=== PATIENT | female | born 1950 | race Caucasian/White ===

== ENCOUNTER → 2023-07-15 13:05 | Outpatient (CLI) | payer MEDICARE, SELFPAY ==
--- NOTE | ~2023-07-15 | XR_ITS ---
EXAMINATION: XR abdomen/kub 1V DATE: 07/15/2023 13:27 INDICATION: Obstruction of left ureteropelvic junction. TECHNIQUE: A supine view of the abdomen on 2 radiographs was obtained. COMPARISON: None. FINDINGS: There are no dilated loops of bowel. The kidneys are obscured by bowel. There are 2 mm and 1 mm calcifications in left pelvis. There are phleboliths in the pelvis. IMPRESSION: 1. 2 mm and 1 mm calcifications in left pelvis that may be phleboliths or less likely distal left ure teral stones. Reviewed, dictated and finalized at location A. RDING STUDIO INTERN IMPRESSION: 1. 2 mm and 1 mm calcifications in left pelvis that may be phleboliths or less likely distal left ureteral stones.
--- NOTE | ~2023-07-15 | US_ITS ---
EXAMINATION: US retroperitoneal comp DATE: 07/15/2023 14:25 INDICATION: Obstruction at left ureteropelvic junction. TECHNIQUE: Multiple ultrasound grayscale images of the kidneys were obtained. COMPARISON: None. FINDINGS: The right kidney measures 10.1 x 5.5 x 5.3 cm. The left kidney measures 10.3 x 6.1 x 4.3 cm. The kidn eys demonstrate normal parenchymal echogenicity. There is mild right hydronephrosis. The bladder is n ormal. IMPRESSION: 1. Normal left kidney. 2. Mild right hydronephrosis. Reviewed, dictated and finalized at location A. UME TECHNICIAN
== END ==
PROVIDERS: PCP Family Medicine; Visit Provider Urology
DX: N20.1 Calculus of ureter (principal)
CPT/HCPCS: 74018; 76770